=== PATIENT | male | born 1955 | race Caucasian/White ===

== ENCOUNTER 2017-11-21 18:17 | Emergency (ER) | payer OTHER ==
--- NOTE | 2017-11-21 19:04 | EDM.PDOC ---
ED HPI GENERAL MEDICAL PROBLEM - General Chief Complaint: Fever Stated Complaint: BODYACHES/FEVER/COUGH Time Seen by Provider: 11/21/17 18:51 Source of Information: Reports: Patient History Limitations: Reports: No Limitations - History of Present Illness INITIAL COMMENTS - FREE TEXT/NARRATIVE: HISTORY AND PHYSICAL: []62-year-old male presenting with concerns over cough and fever History of Present Illness: []Patient has been sick for 2 days He states he never gets sick Review of Systems: As per history of present illness and below otherwise all systems reviewed and negative. Past medical history: As per history of present illness and as reviewed below otherwise noncontributory. Surgical history: As per history of present illness and as reviewed below otherwise noncontributory. Social history: No reported history of drug or alcohol abuse. Family history: As per history of present illness and as reviewed below otherwise noncontributory. Physical exam: Alert and oriented man who answers questions appropriately speaking in full sentences but asked to cough at the end speaking. Cough is a dry cough HEENT: Atraumatic, normocehpalic, pupils reactive, negative for conjunctival pallor or scleral icterus, mucous membranes moist, neck supple, nontender, trachea midline. Tympanic membranes without erythema dull light reflex is present Throat is red, no cervical adenopathy was palpable Lungs: Clear to auscultation, breath sounds equal bilaterally, chest non tender. Heart: S1S2, regular, negative for clicks, rubs, or JVD. Abdomen: Soft, nondistended, nontender. Negative for masses or hepatossplenmegaly. Negative for costovertebral tenderness. Pelvis: Stable nontender. Genitourinary: Deferred. Rectal: Deferred Extremities: Atraumatic, negative for cords or calf pain. Neurovascular unremarkable. Neuro: Awake, alert, oriented. Cranial nerves II through XII unremarkable. Cerebellum unremarkable. Motor and sensory unremarkable throughout. Exam nonfocal. Diagnostics: [Influenza ,rapid strep] Therapeutics: [] Impression: Viral illness[] Plan: [Discharged to home Tylenol and and/or ibuprofen as discussed The counter medications have been discussed Any worsening of symptoms difficulty breathing return for reevaluation] Definitive disposition and diagnosis as appropriate pending reevaluation and review of above. Back Pain Score (Numeric/FACES): 5 chest Pain Score (Numeric/FACES): 7 - Related Data Allergies Allergy/AdvReac Type Severity Reaction Status Date / Time hydrocodone Allergy Itching Verified 11/21/17 18:37 Home Meds: Home Meds Garlic 1,000 mg PO DAILY 03/18/15 [History] Lisinopril/Hydrochlorothiazide [Lisinopril-Hctz 10-12.5 mg Tab] 10 - 12.5 tab PO DAILY 03/18/15 [History] Lutein 20 mg PO DAILY 03/18/15 [History] Mometasone/Formoterol [Dulera 200 MCG/5 MCG] 1 puff INH BID 03/18/15 [History] [place]-3/DHA/Epa/Fish Oil [[place]-3 Fish Oil 1,200 MG Sfgl] 1,200 mg PO DAILY [History] Oregano Oil [Oil of Oregano] 1,500 mg PO DAILY 03/18/15 [History] Pantoprazole Sodium 40 mg PO DAILY 03/18/15 [History] Simvastatin [Zocor] 40 mg PO BEDTIME 03/18/15 [History] Verapamil HCl [Verapamil Sr] 180 mg PO DAILY 03/18/15 [History] Aspirin 81 mg PO DAILY 11/21/17 [History] Past Medical History Cardiovascular History: Reports: Heart Murmur, High Cholesterol, Hypertension Respiratory History: Reports: Asthma Other Musculoskeletal History: left arm at age 9. 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 - Infectious Disease History Infectious Disease History: Reports: Chicken Pox - Past Surgical History Cardiovascular Surgical History: Reports: None Respiratory Surgical History: Reports: None Musculoskeletal Surgical History: Reports: None Other Musculoskeletal Surgeries/Procedures:: left arm Social & Family History - Family History Family Medical History: Noncontributory - Tobacco Use Smoking Status *Q: Never Smoker Second Hand Smoke Exposure: No - Caffeine Use Caffeine Use: Reports: Coffee - Alcohol Use Days Per Week of Alcohol Use: 0 - Recreational Drug Use Recreational Drug Use: No ED ROS GENERAL - Review of Systems Review Of Systems: ROS reveals no pertinent complaints other than HPI. ED EXAM, GENERAL - Physical Exam Exam: See Below (See dictation) Course - Vital Signs Last Recorded V/S: Last Vital Signs Temp 37.4 C 11/21/17 18:34 Pulse 80 11/21/17 18:34 Resp 18 11/21/17 18:34 BP 125/93 H 11/21/17 18:34 Pulse Ox 93 L 11/21/17 18:34 Departure - Departure Time of Disposition: 19:28 Disposition: Home, Self-Care 01 Condition: Good Clinical Impression: Upper respiratory infection, viral - Discharge Information Instructions: Fever, Adult, [id number][id number] Referrals: PCP,None [Primary Care Provider] - Forms: ED Department Discharge Additional Instructions: The following information is given to patients seen in the emergency department who are being discharged to home. This information is to outline your options for follow-up care. We provide all patients seen in our emergency department with a follow-up referral. The need for follow-up, as well as the timing and circumstances, are variable depending upon the specifics of your emergency department visit. If you don't have a primary care physician on staff, we will provide you with a referral. We always advise you to contact your personal physician following an emergency department visit to inform them of the circumstance of the visit and for follow-up with them and/or the need for any referrals to a consulting specialist. The emergency department will also refer you to a specialist when appropriate. This referral assures that you have the opportunity for followup care with a specialist. All of these measure are taken in an effort to provide you with optimal care, which includes your followup. Under all circumstances we always encourage you to contact your private physician who remains a resource for coordinating your care. When calling for followup care, please make the office aware that this follow-up is from your recent emergency room visit. If for any reason you are refused follow-up, please contact the [facility] emergency department at and asked to speak to the emergency department charge nurse. You have a viral upper respiratory infection [id number] medications may help with fever and symptoms Sleep and fluids for hydration are recommended Any difficulty with breathing worsening of symptoms return for reevaluation
[2017-11-21 19:43] VITALS: BP 137/81
== END 2017-11-21 19:45 | disposition home or self-care (01) ==
LOC: MW.ED 18:17
DX: J06.9 Acute upper respiratory infection, unspecified (principal); B34.9 Viral infection, unspecified; E78.00 Pure hypercholesterolemia, unspecified; I10 Essential (primary) hypertension; Z88.5 Allergy status to narcotic agent; Z79.899 Other long term (current) drug therapy; Z79.82 Long term (current) use of aspirin
CPT/HCPCS: 87804; 99282; 99283

== ENCOUNTER 2018-02-14 19:43 | Emergency (ER) | payer OTHER ==
[2018-02-14] MEDS ORDERED: Sodium Chloride 0.9% 1,000 ML IV ONE (20:03)
--- NOTE | 2018-02-14 20:06 | EDM.PDOC ---
ED HPI GENERAL MEDICAL PROBLEM - General Chief Complaint: Genitourinary Problem Stated Complaint: BLOOD IN URINE Time Seen by Provider: 02/14/18 20:03 - History of Present Illness INITIAL COMMENTS - FREE TEXT/NARRATIVE: HISTORY AND PHYSICAL: History of present illness: Patient 63-year-old male presents with a concern of gross hematuria he states he had a little discomfort in past large clot he denies any pain in his abdomen or flank he states that the discomfort was with urinating he denies any discomfort prior to this episode he denies any bleeding diathesis he takes a baby aspirin daily his history hypertension and history of chronic back pain for which she had a recent steroid epidural injection. Review of systems: As per history of present illness and below otherwise all systems reviewed and negative. Past medical history: As per history of present illness and as reviewed below otherwise noncontributory. Surgical history: As per history of present illness and as reviewed below otherwise noncontributory. Social history: No reported history of drug or alcohol abuse. Family history: As per history of present illness and as reviewed below otherwise noncontributory. Physical exam: HEENT: Atraumatic, normocephalic, pupils reactive, negative for conjunctival pallor or scleral icterus, mucous membranes moist, throat clear, neck supple, nontender, trachea midline. Lungs: Clear to auscultation, breath sounds equal bilaterally, chest nontender. Heart: S1S2, regular, negative for clicks, rubs, or JVD. Abdomen: Soft, nondistended, nontender. Negative for masses or hepatosplenomegaly. Negative for costovertebral tenderness. Pelvis: Stable nontender. Genitourinary: Deferred. Rectal: Deferred. Extremities: Atraumatic, negative for cords or calf pain. Neurovascular unremarkable. Neuro: Awake, alert, oriented. Cranial nerves II through XII unremarkable. Cerebellum unremarkable. Motor and sensory unremarkable throughout. Exam nonfocal. Diagnostics: CBC CMP UA urine culture PT/INR CT abdomen and pelvis with and without IV contrast Therapeutics: Normal saline 1 L bolus Impression: #1 gross hematuria etiology to be determined Definitive disposition and diagnosis as appropriate pending reevaluation and review of above. - Related Data Allergies Allergy/AdvReac Type Severity Reaction Status Date / Time hydrocodone Allergy Itching Verified 02/14/18 20:38 Home Meds: Home Meds Garlic 1,000 mg PO DAILY 03/18/15 [History] Lisinopril/Hydrochlorothiazide [Lisinopril-Hctz 10-12.5 mg Tab] 10 - 12.5 tab PO DAILY 03/18/15 [History] Lutein 20 mg PO DAILY 03/18/15 [History] [place]-3/DHA/Epa/Fish Oil [[place]-3 Fish Oil 1,200 MG Sfgl] 1,200 mg PO DAILY [History] Oregano Oil [Oil of Oregano] 1,500 mg PO DAILY 03/18/15 [History] Simvastatin [Zocor] 80 mg PO BEDTIME 03/18/15 [History] Verapamil HCl [Verapamil Sr] 180 mg PO DAILY 03/18/15 [History] Aspirin 81 mg PO DAILY 11/21/17 [History] Omeprazole 1 cap PO DAILY 02/14/18 [History] Tamsulosin [Flomax] 1 cap PO DAILY 02/14/18 [History] Past Medical History Cardiovascular History: Reports: Heart Murmur, High Cholesterol, Hypertension Respiratory History: Reports: Asthma Other Musculoskeletal History: left arm at age 9. 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 - Infectious Disease History Infectious Disease History: Reports: Chicken Pox - Past Surgical History Cardiovascular Surgical History: Reports: None Respiratory Surgical History: Reports: None Musculoskeletal Surgical History: Reports: None Other Musculoskeletal Surgeries/Procedures:: left arm Social & Family History - Family History Family Medical History: Noncontributory - Tobacco Use Smoking Status *Q: Never Smoker Second Hand Smoke Exposure: No - Caffeine Use Caffeine Use: Reports: Coffee - Alcohol Use Days Per Week of Alcohol Use: 0 - Recreational Drug Use Recreational Drug Use: No ED ROS GENERAL - Review of Systems Review Of Systems: ROS reveals no pertinent complaints other than HPI. ED EXAM, GENERAL - Physical Exam Exam: See Below (See dictation) Course - Vital Signs Text/Narrative:: Devlin was placed in lateral lavage was negative Last Recorded V/S: Last Vital Signs Temp 36.6 C 02/14/18 19:43 Pulse 57 L 02/14/18 21:07 Resp 16 02/14/18 21:07 BP 147/88 H 02/14/18 21:07 Pulse Ox 97 02/14/18 21:07 - Orders/Labs/Meds Orders: Active Orders 24 hr Category Date Time Status Abdomen Pelvis w wo Cont [CT] Stat Exams 02/14/18 20:04 Taken CULTURE URINE [RM] Stat Lab 02/14/18 19:56 Ordered UA W/MICROSCOPIC [URIN] Stat Lab 02/14/18 19:57 Ordered cefTRIAXone [Rocephin in Dextrose,Iso-Osm 1 GM/50 ML] 1 Med 02/14/18 21:56 Active gm Premix Bag 1 bag IV ONETIME Medication Orders Ceftriaxone Sodium/Dextrose 1 (gm/ Premix) 50 mls @ 100 mls/hr IV ONETIME ONE Stop: 02/14/18 22:25 Labs: Laboratory Tests 02/14/18 02/14/18 02/14/18 Range/Units 19:57 20:04 20:04 WBC 13.55 H (4.0-11.0) K/uL RBC 5.29 (4.50-5.90) M/uL Hgb 17.2 H (13.0-17.0) g/dL Hct 48.0 (38.0-50.0) % MCV 90.7 (80.0-98.0) fL MCH 32.5 H (27.0-32.0) pg MCHC 35.8 (31.0-37.0) g/dL RDW Std Deviation 49.3 (28.0-62.0) fl RDW Coeff of Dg 15 (11.0-15.0) % Plt Count 148 L (150-400) K/uL MPV 12.20 H (7.40-12.00) fL Neut % (Auto) 80.1 H (48.0-80.0) % Lymph % (Auto) 10.9 L (16.0-40.0) % Emery % (Auto) 8.5 (0.0-15.0) % Eos % (Auto) 0.3 (0.0-7.0) % Baso % (Auto) 0.2 (0.0-1.5) % Neut # (Auto) 10.9 H (1.4-5.7) K/uL Lymph # (Auto) 1.5 (0.6-2.4) K/uL Emery # (Auto) 1.2 H (0.0-0.8) K/uL Eos # (Auto) 0.0 (0.0-0.7) K/uL Baso # (Auto) 0.0 (0.0-0.1) K/uL Nucleated RBC % 0.0 /100WBC Nucleated RBCs # 0 K/uL INR 0.92 Sodium (136-148) mmol/L Potassium (3.5-5.1) mmol/L Chloride (98-107) mmol/L Carbon Dioxide (21.0-32.0) mmol/L BUN (7.0-18.0) mg/dL Creatinine (0.8-1.3) mg/dL Est Cr Clr Drug Dosing mL/min Estimated GFR (MDRD) ml/min Glucose (74-106) mg/dL Calcium (8.5-10.1) mg/dL Total Bilirubin (0.2-1.0) mg/dL AST (15-37) IU/L ALT (14-63) IU/L Alkaline Phosphatase (46-116) U/L Total Protein (6.4-8.2) g/dL Albumin (3.4-5.0) g/dL Globulin (2.0-3.5) g/dL Albumin/Globulin Ratio (1.3-2.8) Urine Color RED Urine Appearance CLOUDY Urine pH 5.5 (5.0-8.0) Ur Specific Spring 1.025 (1.001-1.035) Urine Protein >=300 (NEGATIVE) mg/dL Urine Glucose (UA) NEGATIVE (NEGATIVE) mg/dL Urine Ketones TRACE H (NEGATIVE) mg/dL Urine Occult Blood LARGE H (NEGATIVE) Urine Nitrite POSITIVE H (NEGATIVE) Urine Bilirubin NEGATIVE (NEGATIVE) Urine Urobilinogen 1.0 (<2.0) EU/dL Ur Leukocyte Esterase TRACE (NEGATIVE) Urine RBC TNC (0-2/HPF) Urine WBC 1-3 (0-5/HPF) Ur Epithelial Cells RARE (NONE-FEW) Urine Bacteria FEW (NEGATIVE) 02/14/18 Range/Units 20:04 WBC (4.0-11.0) K/uL RBC (4.50-5.90) M/uL Hgb (13.0-17.0) g/dL Hct (38.0-50.0) % MCV (80.0-98.0) fL MCH (27.0-32.0) pg MCHC (31.0-37.0) g/dL RDW Std Deviation (28.0-62.0) fl RDW Coeff of Dg (11.0-15.0) % Plt Count (150-400) K/uL MPV (7.40-12.00) fL Neut % (Auto) (48.0-80.0) % Lymph % (Auto) (16.0-40.0) % Emery % (Auto) (0.0-15.0) % Eos % (Auto) (0.0-7.0) % Baso % (Auto) (0.0-1.5) % Neut # (Auto) (1.4-5.7) K/uL Lymph # (Auto) (0.6-2.4) K/uL Emery # (Auto) (0.0-0.8) K/uL Eos # (Auto) (0.0-0.7) K/uL Baso # (Auto) (0.0-0.1) K/uL Nucleated RBC % /100WBC Nucleated RBCs # K/uL INR Sodium 142 (136-148) mmol/L Potassium 4.7 (3.5-5.1) mmol/L Chloride 107 (98-107) mmol/L Carbon Dioxide 29.2 (21.0-32.0) mmol/L BUN 27 H (7.0-18.0) mg/dL Creatinine 1.1 (0.8-1.3) mg/dL Est Cr Clr Drug Dosing 71.89 mL/min Estimated GFR (MDRD) > 60.0 ml/min Glucose 126 H (74-106) mg/dL Calcium 9.1 (8.5-10.1) mg/dL Total Bilirubin 0.4 (0.2-1.0) mg/dL AST 27 (15-37) IU/L ALT 43 (14-63) IU/L Alkaline Phosphatase 63 (46-116) U/L Total Protein 6.8 (6.4-8.2) g/dL Albumin 3.3 L (3.4-5.0) g/dL Globulin 3.5 (2.0-3.5) g/dL Albumin/Globulin Ratio 0.9 L (1.3-2.8) Urine Color Urine Appearance Urine pH (5.0-8.0) Ur Specific Spring (1.001-1.035) Urine Protein (NEGATIVE) mg/dL Urine Glucose (UA) (NEGATIVE) mg/dL Urine Ketones (NEGATIVE) mg/dL Urine Occult Blood (NEGATIVE) Urine Nitrite (NEGATIVE) Urine Bilirubin (NEGATIVE) Urine Urobilinogen (<2.0) EU/dL Ur Leukocyte Esterase (NEGATIVE) Urine RBC (0-2/HPF) Urine WBC (0-5/HPF) Ur Epithelial Cells (NONE-FEW) Urine Bacteria (NEGATIVE) Meds: Medications Generic Name Dose Route Start Last Admin Trade Name Freq PRN Reason Stop Dose Admin Ceftriaxone Sodium/Dextrose 1 50 mls @ 100 mls/hr 02/14/18 21:56 gm/ Premix IV 02/14/18 22:25 ONETIME ONE Discontinued Medications Generic Name Dose Route Start Last Admin Trade Name Freq PRN Reason Stop Dose Admin Sodium Chloride 1,000 mls @ 999 mls/hr 02/14/18 20:03 02/14/18 20:12 Normal Saline IV 02/14/18 21:03 999 mls/hr STAT ONE Administration Iopamidol 100 ml 02/14/18 21:19 02/14/18 21:19 Isovue-370 (76%) IVPUSH 02/14/18 21:20 100 ml ONETIME STA Administration Departure - Departure Time of Disposition: 21:59 Disposition: Home, Self-Care 01 Condition: Good Clinical Impression: Gross hematuria, UTI, Urinary tract infectious disease - Discharge Information Referrals: PCP,None [Primary Care Provider] - Forms: ED Department Discharge Additional Instructions: The following information is given to patients seen in the emergency department who are being discharged to home. This information is to outline your options for follow-up care. We provide all patients seen in our emergency department with a follow-up referral. The need for follow-up, as well as the timing and circumstances, are variable depending upon the specifics of your emergency department visit. If you don't have a primary care physician on staff, we will provide you with a referral. We always advise you to contact your personal physician following an emergency department visit to inform them of the circumstance of the visit and for follow-up with them and/or the need for any referrals to a consulting specialist. The emergency department will also refer you to a specialist when appropriate. This referral assures that you have the opportunity for followup care with a specialist. All of these measure are taken in an effort to provide you with optimal care, which includes your followup. Under all circumstances we always encourage you to contact your private physician who remains a resource for coordinating your care. When calling for followup care, please make the office aware that this follow-up is from your recent emergency room visit. If for any reason you are refused follow-up, please contact the [facility] emergency department at and asked to speak to the emergency department charge nurse. [facility] [address] [place] [id number] Keflex as prescribed push fluids call to schedule appointment with urology above return as needed as discussed - My Orders Last 24 Hours: My Active Orders 02/14/18 19:56 CULTURE URINE [RM] Stat 02/14/18 19:57 UA W/MICROSCOPIC [URIN] Stat 02/14/18 20:04 Abdomen Pelvis w wo Cont [CT] Stat 02/14/18 21:56 cefTRIAXone [Rocephin in Dextrose,Iso-Osm 1 GM/50 ML] 1 gm Premix Bag 1 bag IV ONETIME - Assessment/Plan Last 24 Hours: My Active Orders 02/14/18 19:56 CULTURE URINE [RM] Stat 02/14/18 19:57 UA W/MICROSCOPIC [URIN] Stat 02/14/18 20:04 Abdomen Pelvis w wo Cont [CT] Stat 02/14/18 21:56 cefTRIAXone [Rocephin in Dextrose,Iso-Osm 1 GM/50 ML] 1 gm Premix Bag 1 bag IV ONETIME
[2018-02-14 20:30] LABS: CHLORIDE,CL 107 mmol/L (98-107); SODIUM,NA 142 mmol/L (136-148)
[2018-02-14] MEDS ORDERED: Iopamidol 755 Mg/ML 100 ML Bottle IVPUSH STA (21:19)
[2018-02-14] MEDS ORDERED: cefTRIAXone 1 GM in Premix Bag 1 BAG IV ONE (21:56)
[2018-02-14 23:05] VITALS: BP 158/83
--- NOTE | 2018-02-15 13:13 | CT ---
EXAM DATE: 02/14/18 PATIENT'S AGE: 63 Patient: DAYNA SHERMAN Facility: [place], [place] Site . Site : [id number] Study: CT Abdomen/Pelvis W/ and W/O Cont [id number]/[id number] 9:21:18 PM Ordering Physician: Bennie Gonzales Final Report: INDICATION: Rectal bleeding. CT ABDOMEN AND PELVIS WITHOUT AND WITH CONTRAST TECHNIQUE: Multidetector CT imaging was performed through the abdomen and pelvis prior to and following intravenous contrast administration using 100 mL Isovue 370. Coronal and sagittal reconstructions were generated. COMPARISON: None. FINDINGS: Lower chest: Minimal bibasilar lung atelectasis or scarring. Liver: Within normal limits. Gallbladder and bile ducts: No gallbladder wall thickening or calcified gallstones. No biliary dilation identified. Pancreas: Unremarkable. Spleen: Normal. Adrenals: No nodules or masses. Kidneys, ureters, and urinary bladder: No urinary tract stones identified. 1 centimeter left renal cyst. No suspicious renal masses or hydronephrosis. Mild diffuse wall thickening of the urinary bladder. Gastrointestinal tract: Normal caliber small bowel without wall thickening or obstruction. The appendix is normal. Multiple sigmoid colon diverticula, without convincing evidence of diverticulitis. Small fat-containing umbilical hernia. Vascular structures: Mild ectasia of the infrarenal abdominal aorta. Mild aortoiliac atherosclerotic calcifications. Peritoneum: No free air, abscess, or significant free fluid. Lymph nodes: No pathologically enlarged nodes identified. Reproductive organs: No pelvic masses. Bones: Spinal degenerative changes. Sacral Tarlov cyst. IMPRESSION: 1. No definite acute abnormality identified. 2. Sigmoid colon diverticulosis without convincing evidence of diverticulitis. 3. Mild wall thickening of the urinary bladder. 4. Nonacute additional findings as detailed above. RIO GILLESPIE MD [employer] Dictated by López Gillespie MD @ 02/14/2018 9:50:08 PM Dictated by: López Gillespie MD @ 02/14/2018 21:51:14 (Electronic Signature) Report Signed by Proxy. [facility]
== END 2018-02-14 23:00 | disposition home or self-care (01) ==
LOC: MW.ED 19:43
DX: N39.0 Urinary tract infection, site not specified (principal); E78.00 Pure hypercholesterolemia, unspecified; I10 Essential (primary) hypertension; Z88.5 Allergy status to narcotic agent; Z79.82 Long term (current) use of aspirin; Z79.899 Other long term (current) drug therapy
CPT/HCPCS: 36415; 74178; 80053; 81001; 85025; 85610; 87086; 96361; 96365; 99284; J0696; J7040; Q9967

== ENCOUNTER 2019-08-12 19:18 | Emergency (ER) | payer OTHER ==
[2019-08-12 19:26] VITALS: BP 121/88; PULSE 61
--- NOTE | 2019-08-12 19:28 | EDM.PDOC ---
ED HPI GENERAL MEDICAL PROBLEM - General Chief Complaint: ENT Problem Stated Complaint: SINUS INFECTION Time Seen by Provider: 08/12/19 19:28 - History of Present Illness INITIAL COMMENTS - FREE TEXT/NARRATIVE: HISTORY AND PHYSICAL: History of present illness: Patient 64-year-old male who presents concern of sinusitis he was recently [facility] and prescribed Augmentin patient states he's had no improvement no fever chills nausea vomiting or other complaints. Review of systems: As per history of present illness and below otherwise all systems reviewed and negative. Past medical history: As per history of present illness and as reviewed below otherwise noncontributory. Surgical history: As per history of present illness and as reviewed below otherwise noncontributory. Social history: No reported history of drug or alcohol abuse. Family history: As per history of present illness and as reviewed below otherwise noncontributory. Physical exam: HEENT: Atraumatic, normocephalic, pupils reactive, negative for conjunctival pallor or scleral icterus, mucous membranes moist, throat clear, neck supple, nontender, trachea midline. Patient is some mild tenderness over his maxillary and frontal sinuses to percussion Lungs: Clear to auscultation, breath sounds equal bilaterally, chest nontender. Heart: S1S2, regular, negative for clicks, rubs, or JVD. Abdomen: Soft, nondistended, nontender. Negative for masses or hepatosplenomegaly. Negative for costovertebral tenderness. Pelvis: Stable nontender. Genitourinary: Deferred. Rectal: Deferred. Extremities: Atraumatic, negative for cords or calf pain. Neurovascular unremarkable. Neuro: Awake, alert, oriented. Cranial nerves II through XII unremarkable. Cerebellum unremarkable. Motor and sensory unremarkable throughout. Exam nonfocal. Diagnostics: None Therapeutics: None Impression: #1 sinusitis #2 medical screening exam Definitive disposition and diagnosis as appropriate pending reevaluation and review of above. - Related Data Allergies Allergy/AdvReac Type Severity Reaction Status Date / Time hydrocodone Allergy Itching Verified 08/12/19 19:21 Home Meds: Home Meds Garlic 1,000 mg PO DAILY 03/18/15 [History] Lisinopril/Hydrochlorothiazide [Lisinopril-Hctz 10-12.5 mg Tab] 10 - 12.5 tab PO DAILY 03/18/15 [History] Lutein 20 mg PO DAILY 03/18/15 [History] [place]-3/DHA/Epa/Fish Oil [[place]-3 Fish Oil 1,200 MG Sfgl] 1,200 mg PO DAILY [History] Oregano Oil [Oil of Oregano] 1,500 mg PO DAILY 03/18/15 [History] Simvastatin [Zocor] 80 mg PO BEDTIME 03/18/15 [History] Verapamil HCl [Verapamil Sr] 180 mg PO DAILY 03/18/15 [History] Aspirin 81 mg PO DAILY 11/21/17 [History] Omeprazole 1 cap PO DAILY 02/14/18 [History] Tamsulosin [Flomax] 1 cap PO DAILY 02/14/18 [History] Past Medical History Cardiovascular History: Reports: Heart Murmur, High Cholesterol, Hypertension Respiratory History: Reports: Asthma Gastrointestinal History: Reports: GERD Other Musculoskeletal History: left arm at age 9. 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 - Infectious Disease History Infectious Disease History: Reports: Chicken Pox - Past Surgical History Cardiovascular Surgical History: Reports: None Respiratory Surgical History: Reports: None Musculoskeletal Surgical History: Reports: None Other Musculoskeletal Surgeries/Procedures:: left arm Social & Family History - Family History Family Medical History: Noncontributory - Caffeine Use Caffeine Use: Reports: Coffee ED ROS GENERAL - Review of Systems Review Of Systems: ROS reveals no pertinent complaints other than HPI. ED EXAM, GENERAL - Physical Exam Exam: See Below (See dictation) Departure - Departure Time of Disposition: 19:27 Disposition: Home, Self-Care 01 Condition: Good Clinical Impression: Sinusitis, Encounter for medical screening examination - Discharge Information Referrals: PCP,None [Primary Care Provider] - Additional Instructions: The following information is given to patients seen in the emergency department who are being discharged to home. This information is to outline your options for follow-up care. We provide all patients seen in our emergency department with a follow-up referral. The need for follow-up, as well as the timing and circumstances, are variable depending upon the specifics of your emergency department visit. If you don't have a primary care physician on staff, we will provide you with a referral. We always advise you to contact your personal physician following an emergency department visit to inform them of the circumstance of the visit and for follow-up with them and/or the need for any referrals to a consulting specialist. The emergency department will also refer you to a specialist when appropriate. This referral assures that you have the opportunity for followup care with a specialist. All of these measure are taken in an effort to provide you with optimal care, which includes your followup. Under all circumstances we always encourage you to contact your private physician who remains a resource for coordinating your care. When calling for followup care, please make the office aware that this follow-up is from your recent emergency room visit. If for any reason you are refused follow-up, please contact the [facility] emergency department at and asked to speak to the emergency department charge nurse. Continue Augmentin as prescribed follow-up [facility] referral as discussed return as needed as discussed
== END 2019-08-12 19:40 | disposition home or self-care (01) ==
LOC: MW.ED 19:18
DX: J32.9 Chronic sinusitis, unspecified (principal); I10 Essential (primary) hypertension; E78.00 Pure hypercholesterolemia, unspecified; K21.9 Gastro-esophageal reflux disease without esophagitis; J45.909 Unspecified asthma, uncomplicated; Z88.5 Allergy status to narcotic agent; Z79.899 Other long term (current) drug therapy; Z79.82 Long term (current) use of aspirin
CPT/HCPCS: 99283